=== PATIENT | female | born 1995 | race Two or more races ===

== ENCOUNTER 2025-02-25 20:44 | Emergency (ER) | payer OTHER ==
[~2025-02-25] VITALS: Ht 160 cm; Wt 71.2 kg
[2025-02-25 22:45] VITALS: BP 123/84; O2SAT 100
== END 2025-02-25 22:46 | disposition home or self-care (01) ==
LOC: ER 21:34
DX: M25.512 Pain in left shoulder (principal); T37.3X5A Adverse effect of other antiprotozoal drugs, initial encounter; T36.4X5A Adverse effect of tetracyclines, initial encounter; T47.1X5A Adverse effect of other antacids and anti-gastric-secretion drugs, initial encounter; R11.0 Nausea; R21 Rash and other nonspecific skin eruption; R42 Dizziness and giddiness; R68.83 Chills (without fever); F41.9 Anxiety disorder, unspecified; Z87.19 Personal history of other diseases of the digestive system; Y92.89 Other specified places as the place of occurrence of the external cause
CPT/HCPCS: A4606; A4663